=== PATIENT | male | born 1990 | race Caucasian/White ===

== ENCOUNTER 2019-12-25 02:53 | Emergency (ER) | payer MEDICAID ==
[~2019-12-25] VITALS: Ht 180.3 cm; Wt 68.2 kg
[2019-12-25] MEDS ORDERED: BACI28OI9 TP (03:02)
[2019-12-25] MEDS ORDERED: ibuprofen tablet 400 MG TABLET PO ONE (03:05)
[2019-12-25] MEDS ORDERED: bacitracin 15gm ointment TP ONE (03:05)
[2019-12-25 03:25] VITALS: BP 129/69
== END 2019-12-25 03:27 | disposition home or self-care (01) ==
LOC: ER 02:53
DX: T23.002A Burn of unspecified degree of left hand, unspecified site, initial encounter (principal); T23.001A Burn of unspecified degree of right hand, unspecified site, initial encounter; T24.001A Burn of unspecified degree of unspecified site of right lower limb, except ankle and foot, initial encounter; F12.90 Cannabis use, unspecified, uncomplicated; F19.90 Other psychoactive substance use, unspecified, uncomplicated; Z98.890 Other specified postprocedural states; Z79.2 Long term (current) use of antibiotics; X08.8XXA Exposure to other specified smoke, fire and flames, initial encounter; Y93.89 Activity, other specified; Y92.89 Other specified places as the place of occurrence of the external cause; Y99.8 Other external cause status
CPT/HCPCS: 99283

== ENCOUNTER 2020-01-12 11:53 | Emergency (ER) | payer MEDICAID ==
[~2020-01-12] VITALS: Ht 180.3 cm; Wt 69.0 kg
[~2020-01-12 11:53] MED LIST: BACI28OI9 TP
[2020-01-12 12:05] VITALS: BP 133/69
[2020-01-12] MEDS ORDERED: CLIN150C8 PO (13:29)
[2020-01-12] MEDS ORDERED: clindamycin 150mg capsule PO ONE (13:30)
[2020-01-12] MEDS ORDERED: ibuprofen tablet 400 MG TABLET PO ONE (13:30)
== END 2020-01-12 14:06 | disposition home or self-care (01) ==
LOC: ER 11:54
DX: L02.416 Cutaneous abscess of left lower limb (principal); L03.116 Cellulitis of left lower limb; F12.90 Cannabis use, unspecified, uncomplicated; Z98.890 Other specified postprocedural states; Z79.899 Other long term (current) drug therapy
CPT/HCPCS: 10060; 73610; 99283

== ENCOUNTER 2020-10-16 13:15 | Emergency (ER) | payer MEDICAID ==
[~2020-10-16] VITALS: Ht 180.3 cm; Wt 67.8 kg
[~2020-10-16 13:15] MED LIST changes: +CLIN150C8 PO
[2020-10-16 13:38] VITALS: BP 136/76
[2020-10-16] MEDS ORDERED: DOXY100C2 PO (15:48)
[2020-10-16] MEDS ORDERED: MUPI22OI30 TOP (15:48)
== END 2020-10-16 16:01 | disposition home or self-care (01) ==
LOC: ER 13:16
DX: L02.512 Cutaneous abscess of left hand (principal); L02.511 Cutaneous abscess of right hand; L03.011 Cellulitis of right finger; F12.90 Cannabis use, unspecified, uncomplicated; Z79.2 Long term (current) use of antibiotics; Z79.899 Other long term (current) drug therapy
CPT/HCPCS: 99283

== ENCOUNTER 2020-10-20 01:47 | Emergency (ER) | payer MEDICAID ==
[~2020-10-20] VITALS: Ht 182.9 cm; Wt 75.0 kg
[~2020-10-20 01:47] MED LIST changes: +DOXY100C2 PO; +MUPI22OI30 TOP
[2020-10-20 01:53] VITALS: BP 123/52
[2020-10-20] MEDS ORDERED: CEPH-585 PO (01:54)
[2020-10-20] MEDS ORDERED: SULF1TAB49 PO (01:54)
[2020-10-20] MEDS ORDERED: LIDOcaine 1% W/epiNEPHrine 1:200,000 10ml vial IJ ONE (01:55)
--- NOTE | 2020-10-20 02:13 | NUR ---
Dr. Mooney [facility] [place].
[2020-10-20] MEDS ORDERED: CefTRIAXone 250MG inj IM ONE (02:30)
[2020-10-20] MEDS ORDERED: acetaminophen 325mg tablet PO ONE (02:35)
[2020-10-20] MEDS ORDERED: CefTRIAXone 1000mg IM Kit (w/lidocaine diluent) IM ONE (02:35)
[2020-10-20] MEDS ORDERED: ibuprofen tablet 400 MG TABLET PO ONE (02:35)
--- NOTE | 2020-10-20 02:35 | NUR ---
CALL CULTURE RESULTS TO THIS PHONE #: [phone], [phone].
[2020-10-20] MEDS ORDERED: HYDR-3964 PO (02:55)
[2020-10-20] MEDS ORDERED: ONDA4TAB6 PO (02:55)
== END 2020-10-20 03:02 | disposition home or self-care (01) ==
LOC: ER 01:48
DX: F12.90 Cannabis use, unspecified, uncomplicated (principal); Z79.2 Long term (current) use of antibiotics; Z79.899 Other long term (current) drug therapy; L03.011 Cellulitis of right finger
CPT/HCPCS: 20611; 87070; 87077; 87186; 96372; 99284; J0696

== ENCOUNTER 2022-04-25 17:46 | Emergency (ER) | payer MEDICAID ==
[~2022-04-25] VITALS: Ht 180.3 cm; Wt 66.5 kg
[~2022-04-25 17:46] MED LIST changes: -DOXY100C2 PO; -MUPI22OI30 TOP; +ONDA4TAB6 PO
[2022-04-25 18:32] VITALS: BP 111/77
[2022-04-25] MEDS ORDERED: KEN0.1O TP (19:31)
== END 2022-04-25 20:00 | disposition home or self-care (01) ==
LOC: ER 17:46
DX: S69.81XA Other specified injuries of right wrist, hand and finger(s), initial encounter (principal); S00.11XA Contusion of right eyelid and periocular area, initial encounter; S00.01XA Abrasion of scalp, initial encounter; B36.8 Other specified superficial mycoses; F12.10 Cannabis abuse, uncomplicated; Z79.899 Other long term (current) drug therapy; V19.9XXA Pedal cyclist (driver) (passenger) injured in unspecified traffic accident, initial encounter; Y93.89 Activity, other specified; Y92.89 Other specified places as the place of occurrence of the external cause; Y99.8 Other external cause status
CPT/HCPCS: 99284

== ENCOUNTER 2023-02-07 20:02 | Emergency (ER) | payer MEDICAID ==
[~2023-02-07] VITALS: Ht 180.3 cm; Wt 70.0 kg
[~2023-02-07 20:02] MED LIST changes: +CLIN-214 PO; -CLIN150C8 PO
[2023-02-07 20:06] VITALS: BP 126/86
[2023-02-07] MEDS ORDERED: CefTRIAXone 2gm/D5W 50ml BAG 50 ML IV ONE (20:40)
[2023-02-07 21:08] LABS: BASOPHILS % (AUTO) 0.3 % (0-1); EOSINOPHILS # (AUTO) 0.1 X10'3 (0-0.9); EOSINOPHILS % (AUTO) 1.1 % (0-6); HEMATOCRIT 39.5 % (42.0-52.0); HEMOGLOBIN 13.2 g/dl (14.0-17.9); LYMPHOCYTES # (AUTO) 1.5 X10'3 (1.1-4.8); LYMPHOCYTES % (AUTO) 14.4 % (21-51); MEAN CORPUSCULAR HGB CONC 33.3 g/dL (33.0-36.5); MEAN PLATELET VOLUME 9.4 FL (7.4-10.4); MONOCYTES # (AUTO) 1.2 X10'3 (0-0.9); MONOCYTES % (AUTO) 11.7 % (2-12); NEUTROPHILS # (AUTO) 7.7 X10'3 (1.8-7.7); NEUTROPHILS % (AUTO) 72.5 % (42-75); PLATELET COUNT 255 X10'3 (140-440); RED BLOOD COUNT 4.39 X10'6 (4.70-6.10); RED CELL DISTRIBUTION WIDTH 13.4 % (11.5-14.5); WHITE BLOOD COUNT 10.7 X10'3 (4.5-11.0)
[2023-02-07 21:17] LABS: ALANINE AMINOTRANSFERASE 23 U/L (12-78); ALBUMIN 3.4 G/DL (3.4-5.0); ALBUMIN/GLOBULIN RATIO 0.8 (1.1-1.5); ALKALINE PHOSPHATASE 125 IU/L (46-116); ANION GAP 10 (8-16); ASPARTATE AMINO TRANSFERASE 12 U/L (10-37); BILIRUBIN,TOTAL 0.6 MG/DL (0.1-1.0); BLOOD UREA NITROGEN 13 MG/DL (7-18); BUN/CREATININE RATIO 13.3 (10.0-20.0); CALCIUM 9.1 MG/DL (8.5-10.1); CHLORIDE 102 MMOL/L (99-107); CREATININE 0.98 MG/DL (0.60-1.10); GLUCOSE 129 MG/DL (70-104); POTASSIUM 3.6 MMOL/L (3.5-5.1); SODIUM 139 MMOL/L (135-145); TOTAL CARBON DIOXIDE 27.1 MMOL/L (24-32); TOTAL PROTEIN 7.5 G/DL (6.4-8.2); eGFR 89 ML/MIN
[2023-02-07] MEDS ORDERED: sulfamethoxazole/trimethoprim DS (800/160mg) tablet PO ONE (21:40)
[2023-02-07] MEDS ORDERED: AMOX-117 PO (21:42)
[2023-02-07] MEDS ORDERED: SULF1TAB49 PO (21:42)
== END 2023-02-07 22:02 | disposition home or self-care (01) ==
LOC: ER 20:03
DX: L03.114 Cellulitis of left upper limb (principal); F17.200 Nicotine dependence, unspecified, uncomplicated; F12.90 Cannabis use, unspecified, uncomplicated; F15.90 Other stimulant use, unspecified, uncomplicated; Z79.2 Long term (current) use of antibiotics; Z79.899 Other long term (current) drug therapy; W54.0XXA Bitten by dog, initial encounter; Y93.89 Activity, other specified; Y92.89 Other specified places as the place of occurrence of the external cause; Y99.8 Other external cause status
CPT/HCPCS: 36415; 80053; 83605; 84145; 85025; 87040; 87070; 87077; 87186; 96365; 99284; J0696

== ENCOUNTER 2025-04-09 00:34 | Emergency (ER) | payer MEDICAID ==
[~2025-04-09] VITALS: Ht 182.9 cm; Wt 75.0 kg
[~2025-04-09 00:34] MED LIST changes: +IBUP-1986 PO
[2025-04-09 00:44] VITALS: BP 105/57; PULSE 67; RESP 18; TEMP 98; O2SAT 97
== END 2025-04-09 02:56 | disposition left against medical advice (07) ==
LOC: ER 00:35
DX: T14.8XXA Other injury of unspecified body region, initial encounter (principal); Z53.21 Procedure and treatment not carried out due to patient leaving prior to being seen by health care provider; W55.81XA Bitten by other mammals, initial encounter; Y93.89 Activity, other specified; Y92.89 Other specified places as the place of occurrence of the external cause; Y99.8 Other external cause status